=== PATIENT | male | born 1980 | race Hispanic/Latino ===

== ENCOUNTER 2017-01-17 13:28 | Emergency (ER) | payer MEDICAID ==
[2017-01-17 13:37] VITALS: BP 124/86; TEMP 98.4
--- NOTE | 2017-01-17 13:56 | C.PDOC ---
History Of Present Illness 36 y/o male presents to ED for evaluation of dental pain for the last 2 days. Pt states he noted a crack underneath his dentures. Notes he put denture glue and continues wearing them. States he has appointment with his dentist on 01/22, but is requesting antibiotics to ensure area does not get infected. No fever, or any other complaints at this time. Time Seen by Provider: 01/17/17 13:39 Chief Complaint (Nursing): Dental Pain History Per: Patient History/Exam Limitations: no limitations Onset/Duration Of Symptoms: Days (2) Current Symptoms Are (Timing): Still Present Quality: Positive for: "Pain" Recent travel outside of the [place]: No Additional History Per: Patient Past Medical History Reviewed: Historical Data, Nursing Documentation, Vital Signs Vital Signs: Last Vital Signs Temp 98.4 F 01/17/17 13:37 Pulse 91 H 01/17/17 14:14 Resp 17 01/17/17 14:14 BP 124/86 01/17/17 13:37 Pulse Ox 96 01/17/17 15:09 - Medical History PMH: Asthma Surgical History: Tonsillectomy (T&A) Family History: States: Unknown Family Hx - Social History Hx Tobacco Use: Yes Hx Alcohol Use: No Hx Substance Use: No - Immunization History Hx Tetanus Toxoid Vaccination: No Hx Influenza Vaccination: No Hx Pneumococcal Vaccination: No Review Of Systems Except As Marked, All Systems Reviewed And Found Negative. Constitutional: Negative for: Fever, Chills ENT: Positive for: Mouth Pain (dental pain). Negative for: Mouth Swelling Physical Exam - Physical Exam Appears: Non-toxic, No Acute Distress Skin: Normal Color, Warm, Dry Head: Atraumatic, Normacephalic Eye(s): bilateral: Normal Inspection, EOMI Nose: Normal Oral Mucosa: Moist Tongue: Normal Appearing Lips: Normal Appearing Teeth: No Normal Dentition (poor dentition), Caries, Dentures (dentures removed) , Tender To Palpation (right upper incisor has metallic hole with tenderness) Gingiva: Normal Appearing, No Erythema, No Swelling, No Tender, No Abscess Throat: Normal, No Erythema, No Exudate Neck: Normal ROM, Supple Lymphatic: Normal Exam Chest: Symmetrical Cardiovascular: Rhythm Regular Respiratory: Normal Breath Sounds Neurological/Psych: Oriented x3, Normal Speech ED Course And Treatment O2 Sat by Pulse Oximetry: 96 (RA) Pulse Ox Interpretation: Normal Progress Note: Pt is instructed to follow up with his dentist in 2-5 days for further evaluation. Disposition - Disposition Disposition: HOME/ ROUTINE Disposition Time: 13:50 Condition: GOOD Additional Instructions: Follow up with your dentist or clinic in 2-5 days for further evaluation. Take medications as prescribed. Return to the emergency department at any time if symptoms persist or worsen. Prescriptions: Amoxicillin 875 mg PO BID #14 tablet Naproxen [Naprosyn] 1 tab PO BID PRN #20 tab PRN Reason: Pain Instructions: Toothache (ED) Forms: [employer] (Urdu) - Clinical Impression Clinical Impression: Toothache - PA / [employer] / Resident Statement MD/DO has reviewed & agrees with the documentation as recorded. - Scribe Statement The provider has reviewed the documentation as recorded by the Scribe Francisco Hardy All medical record entries made by the Scribe were at my direction and personally dictated by me. I have reviewed the chart and agree that the record accurately reflects my personal performance of the history, physical exam, medical decision making, and the department course for this patient. I have also personally directed, reviewed, and agree with the discharge instructions and disposition.
[2017-01-17 14:15] VITALS: PULSE 91; RESP 17
[2017-01-17 15:01] VITALS: O2SAT 96
== END 2017-01-17 14:14 | disposition home or self-care (01) ==
LOC: C.ER 13:28
DX: K08.89 Other specified disorders of teeth and supporting structures (principal); F17.210 Nicotine dependence, cigarettes, uncomplicated